=== PATIENT | female | born 1960 | race Caucasian/White ===

== ENCOUNTER 2022-05-08 07:30 | Inpatient (IN) | payer OTHER ==
[~2022-05-08] VITALS: Ht 175.3 cm; Wt 79.4 kg
[2022-05-08 07:36] VITALS: BP 85/52
[2022-05-08] MEDS ORDERED: IBUPROFEN 600 MG TAB PO ONE (08:00)
[2022-05-08] MEDS ORDERED: NACL 0.9% 2,000 ML IV ONE (08:00)
[2022-05-08 10:00] LABS: ALBUMIN 1.7 g/dL (3.4-5.0); ANION GAP 11.4 (8-16); CARBON DIOXIDE 28.2 mmol/L (21-32); CREATININE 0.9 mg/dL (0.6-1.3); POTASSIUM 3.6 mmol/L (3.5-5.1); TOTAL BILIRUBIN 0.5 mg/dL (0.0-1.0)
[2022-05-08] MEDS ORDERED: LEVOFLOXACIN 750 MG/D5W PREMIX 150 ML IV ONE (10:15)
[2022-05-08] MEDS ORDERED: NACL 0.9% 1,000 ML IV ONE (10:20)
[2022-05-08 10:31] LABS: HEMATOCRIT 35.4 % (36-48); HEMOGLOBIN 11.9 g/dL (12.0-16.0); MEAN CORPUSCULAR VOLUME 92.1 fL (80-94); RED BLOOD CELL COUNT(AUTO) 3.85 MIL/uL (4.20-5.40); WHITE BLOOD COUNT (AUTO) 8.5 K/uL (4.8-10.8)
[2022-05-08 10:32] LABS: MEAN CORPUSCULAR HEMOGLOBIN 31 pg (27-31); MEAN CORPUSCULAR HGB CONC 34 g/dL (33-37); RED CELL DISTRIBUTION WIDTH 12.2 % (11.6-13.7)
[2022-05-08 10:33] LABS: NEUTROPHILS % (AUTO) 82.8 % (42.2-75.2); PLATELET COUNT (AUTO) 190 K/uL (140-450)
[2022-05-08 10:34] LABS: BASOPHILS % (AUTO) 0.3 % (0.0-2.0); LYMPHOCYTES % (AUTO) 8.3 % (20.5-51.1); MONOCYTES % (AUTO) 8.6 % (1.7-9.3)
[2022-05-08 10:42] LABS: PROTHROMBIN TIME 10.6 secs (10.8-13.4)
[2022-05-08] MEDS ORDERED: ATOR40TA PO (10:53)
[2022-05-08] MEDS ORDERED: GABA300C PO (10:53)
[2022-05-08] MEDS ORDERED: ASPI-1822 PO (10:53)
[2022-05-08] MEDS ORDERED: BACL10TA4 PO (10:53)
[2022-05-08] MEDS ORDERED: DULO20EC PO (10:53)
[2022-05-08] MEDS ORDERED: ACET-10509 PO (10:53)
[2022-05-08] MEDS ORDERED: MIRT-91 PO (10:55)
[2022-05-08] MEDS ORDERED: ALPR0.252 PO (10:55)
[2022-05-08] MEDS ORDERED: MELA1TAB32 PO (10:55)
[2022-05-08] MEDS ORDERED: MIRA25TE PO (10:55)
[2022-05-08 12:15] VITALS: BP 91/58
[2022-05-08] MEDS: NACL 0.9% 1,000 ML IV SCH (14:05)
[2022-05-08] MEDS ORDERED: ONDANSETRON 4 MG/2 ML VIAL IVP PRN (14:05)
[2022-05-08] MEDS ORDERED: LORazepam 2 MG/ML VIAL IVP PRN (14:05)
[2022-05-08] MEDS: MORPHINE SULFATE 2 MG/ML SYR IVP PRN (15:11)
[2022-05-08] MEDS: PIPERACILLIN/TAZOBACTAM 3.375 GM in DEXTROSE 5% 50 ML IV SCH ×2 (15:11→21:29)
[2022-05-08 16:00] VITALS: BP 102/42
[2022-05-08 20:00] VITALS: BP 107/57
[2022-05-09] VITALS: BP 100/54
[2022-05-09] MEDS: NACL 0.9% 1,000 ML IV SCH ×2 (03:25→16:50)
[2022-05-09 04:00] VITALS: BP 108/53
[2022-05-09] MEDS: PIPERACILLIN/TAZOBACTAM 3.375 GM in DEXTROSE 5% 50 ML IV SCH ×3 (05:46→21:02)
[2022-05-09 08:00] VITALS: BP 93/48
[2022-05-09 10:56] LABS: ALBUMIN 1.9 g/dL (3.4-5.0); ANION GAP 11.1 (8-16); CARBON DIOXIDE 26.8 mmol/L (21-32); CREATININE 0.6 mg/dL (0.6-1.3); MAGNESIUM 1.8 mg/dL (1.8-2.4); PHOSPHORUS 3.1 mg/dL (2.5-4.9); TOTAL BILIRUBIN 0.5 mg/dL (0.0-1.0)
[2022-05-09 11:04] LABS: BASOPHILS % (AUTO) 0.3 % (0.0-2.0); EOSINOPHILS % (AUTO) 0.5 % (0.0-4.0); HEMATOCRIT 33.6 % (36-48); HEMOGLOBIN 11.3 g/dL (12.0-16.0); LYMPHOCYTES # (AUTO) 0.7 K/uL (2.5-16.5); LYMPHOCYTES % (AUTO) 9.2 % (20.5-51.1); MEAN CORPUSCULAR HEMOGLOBIN 31 pg (27-31); MEAN CORPUSCULAR HGB CONC 34 g/dL (33-37); MEAN CORPUSCULAR VOLUME 92.3 fL (80-94); MONOCYTES # (AUTO) 0.7 K/uL (0.8-1.0); MONOCYTES % (AUTO) 8.8 % (1.7-9.3); NEUTROPHILS # (AUTO) 6.4 K/uL (1.8-7.7); NEUTROPHILS % (AUTO) 81.2 % (42.2-75.2); PLATELET COUNT (AUTO) 216 K/uL (140-450); RED BLOOD CELL COUNT(AUTO) 3.64 MIL/uL (4.20-5.40); RED CELL DISTRIBUTION WIDTH 12.7 % (11.6-13.7); WHITE BLOOD COUNT (AUTO) 7.8 K/uL (4.8-10.8)
[2022-05-09 11:26] LABS: POTASSIUM 2.9 mmol/L (3.5-5.1)
[2022-05-09 12:00] VITALS: BP 92/54
[2022-05-09] MEDS ORDERED: POTASSIUM CHLORIDE 40 MEQ, LIDOCAINE MPF 1% 25 MG in NACL 0.9% 250 ML IV SCH (12:30)
[2022-05-09 16:00] VITALS: BP 106/54
[2022-05-09] MEDS: MORPHINE SULFATE 2 MG/ML SYR IVP PRN (17:23)
[2022-05-09 20:00] VITALS: BP 90/50
[2022-05-10] VITALS: BP 91/49
[2022-05-10] MEDS: ACETAMINOPHEN 325 MG TAB PO PRN ×2 (02:22→15:30)
[2022-05-10 04:00] VITALS: BP 90/51
[2022-05-10] MEDS: PIPERACILLIN/TAZOBACTAM 3.375 GM in DEXTROSE 5% 50 ML IV SCH ×2 (04:23→12:03)
[2022-05-10] MEDS: NACL 0.9% 1,000 ML IV SCH (06:05)
[2022-05-10] MEDS: BACLOFEN 10 MG TAB PO SCH ×3 (08:32→16:51)
[2022-05-10] MEDS ORDERED: GABAPENTIN 300 MG CAP PO SCH (09:00)
[2022-05-10] MEDS ORDERED: ASPIRIN 81 MG TAB.CHEW PO SCH (09:00)
[2022-05-10] MEDS ORDERED: DULOXETINE HCL PO SCH (09:00)
[2022-05-10] MEDS ORDERED: NON-FORMULARY ITEM (Mirabegron (Myrbetriq) 1 TAB) PO SCH (09:00)
[2022-05-10 15:01] LABS: ANION GAP 7.6 (8-16); CARBON DIOXIDE 28.2 mmol/L (21-32); CREATININE 0.7 mg/dL (0.6-1.3)
[2022-05-10 15:03] LABS: POTASSIUM 2.8 mmol/L (3.5-5.1)
[2022-05-10] MEDS ORDERED: AMOX-999 PO (15:25)
[2022-05-10] MEDS ORDERED: KCL 20 MEQ/WATER INJ PREMIX 200 ML IV SCH (16:00)
[2022-05-10 16:30] VITALS: BP 100/54
[2022-05-10] MEDS ORDERED: ATORVASTATIN 20 MG TAB PO SCH (21:00)
[2022-05-10] MEDS ORDERED: MIRTAZAPINE 15 MG TAB PO SCH (21:00)
== END 2022-05-10 18:45 | DRG 720 ==
LOC: MED 07:30 → MTU 11:06
PROVIDERS: ADMIT Hospitalist; ATTEND Hospitalist
DX: A41.9 Sepsis, unspecified organism (principal); R53.2 Functional quadriplegia; E44.0 Moderate protein-calorie malnutrition; J18.9 Pneumonia, unspecified organism; Z20.822 Contact with and (suspected) exposure to COVID-19; T14.8XXA Other injury of unspecified body region, initial encounter; X58.XXXA Exposure to other specified factors, initial encounter; Z79.82 Long term (current) use of aspirin; Z79.899 Other long term (current) drug therapy; Z79.1 Long term (current) use of non-steroidal anti-inflammatories (NSAID); Y93.89 Activity, other specified; Y92.89 Other specified places as the place of occurrence of the external cause; Y99.8 Other external cause status; Z68.25 Body mass index [BMI] 25.0-25.9, adult
CPT/HCPCS: 36415; 71045; 80048; 80053; 82150; 83605; 83690; 83735; 84100; 85025; 85610; 85730; 87040; 92610; 96361; 96365; 99291; 99292; J1956; J2001; J2060; J2270; J2543; J3480; J7030; J7060

== ENCOUNTER 2022-08-01 16:03 | Inpatient (IN) | payer OTHER ==
[~2022-08-01] VITALS: Ht 175.3 cm; Wt 66.7 kg
[~2022-08-01 16:03] MED LIST: ACET-10509 PO; ALPR0.252 PO; AMOX-999 PO; ASPI-1822 PO; ATOR40TA PO; BACL10TA4 PO; DULO20EC PO; GABA300C PO; MELA1TAB32 PO; MIRA25TE PO; MIRT-91 PO
[2022-08-01 16:11] VITALS: BP 129/67
--- NOTE | 2022-08-01 16:11 | NUR ---
BIBA to bed 12; placed onto quality assurance monitor.
--- NOTE | 2022-08-01 16:15 | NUR ---
62/F BIBA FROM [facility] C/O GEN WEAK ACCOMPANIED BY NAUSEA AND VOMITING. EMS REPORTS 5 EPISODES OF EMESIS TODAY. PT REPORTS TAKING BIVALENT COVID BOOSTER YESTERDAY. AAO4, NONAMBULATORY, VITALS STABLE, TACHY ON MONITOR, IV ESTABLISHED TO RIGHT HAND WITH 20G. NKA PMH: CVA (QUADRIPLEGIA), HTN, HDL, ANXIETY, DEPRESSION
--- NOTE | 2022-08-01 16:30 | NUR ---
COVID AND FLU SWAB COLLECTED AND SENT TO LAB
[2022-08-01] MEDS ORDERED: cefTRIAXone 1,000 MG in DEXT 5% MINI-BAG PLUS 50 ML IV ONE (16:40)
[2022-08-01] MEDS ORDERED: NACL 0.9% 2,000 ML IV SCH (16:40)
[2022-08-01] MEDS ORDERED: cefTRIAXone 1,000 MG VIAL ONE (16:54)
--- NOTE | 2022-08-01 16:55 | NUR ---
XR AT BEDSIDE
[2022-08-01 16:59] LABS: BASOPHILS % (AUTO) 0.4 % (0.0-2.0); EOSINOPHILS % (AUTO) 0.2 % (0.0-4.0); HEMATOCRIT 44.3 % (36-48); HEMOGLOBIN 14.8 g/dL (12.0-16.0); LYMPHOCYTES # (AUTO) 0.4 K/uL (2.5-16.5); MEAN CORPUSCULAR HEMOGLOBIN 31 pg (27-31); MEAN CORPUSCULAR HGB CONC 33 g/dL (33-37); MEAN CORPUSCULAR VOLUME 92.4 fL (80-94); MONOCYTES # (AUTO) 0.3 K/uL (0.8-1.0); MONOCYTES % (AUTO) 2.9 % (1.7-9.3); NEUTROPHILS # (AUTO) 7.8 K/uL (1.8-7.7); NEUTROPHILS % (AUTO) 91.5 % (42.2-75.2); PLATELET COUNT (AUTO) 218 K/uL (140-450); WHITE BLOOD COUNT (AUTO) 8.5 K/uL (4.8-10.8)
[2022-08-01] MEDS ORDERED: MORPHINE SULFATE 4 MG/ML SYR IVP ONE (17:00)
[2022-08-01] MEDS ORDERED: ONDANSETRON 4 MG/2 ML VIAL IVP ONE (17:00)
[2022-08-01 17:14] LABS: ALBUMIN 3.2 g/dL (3.4-5.0); ANION GAP 13.1 (8-16); CARBON DIOXIDE 28.6 mmol/L (21-32); CREATININE 0.6 mg/dL (0.6-1.3); POTASSIUM 3.7 mmol/L (3.5-5.1); TOTAL BILIRUBIN 0.8 mg/dL (0.0-1.0)
--- NOTE | 2022-08-01 18:00 | NUR ---
STRAIGHT CATH ATTEMPTED BUT NO URINE COLLECTED. ERMD MADE AWARE.
[2022-08-01] MEDS ORDERED: SODIUM PHOSPHATE 118 ML ENEM RC ONE (18:15)
[2022-08-01] MEDS ORDERED: ONDANSETRON 4 MG/2 ML VIAL IVP PRN (18:30)
[2022-08-01] MEDS ORDERED: ACETAMINOPHEN 325 MG TAB PO PRN (18:35)
--- NOTE | 2022-08-01 18:52 | NUR ---
AMEZCUA INSERTED PER ERMD VERBAL ORDER. NO OUTPUT NOTED. BLADDER SCAN PERFORMED AND 400CC URINE WAS NOTED. AMEZCUA CONTINUED TO BE PLACED IN PATIENT. ERMD NOTIFIED.
[2022-08-01] MEDS: NACL 0.9% 1,000 ML IV SCH (19:32)
--- NOTE | 2022-08-01 20:54 | NUR ---
Patient reported, had back back , 04/24
--- NOTE | 2022-08-01 21:02 | NUR ---
Called Dr. Angel for prn pain medication.
[2022-08-01] MEDS ORDERED: KETOROLAC 30 MG/ML VIAL ONE (21:09)
--- NOTE | 2022-08-01 21:16 | NUR ---
Toradol 30 mg IV given for pain.
[2022-08-01] MEDS: MIRTAZAPINE 15 MG TAB PO SCH (21:20)
[2022-08-01] MEDS: ATORVASTATIN 20 MG TAB PO SCH (21:21)
--- NOTE | 2022-08-01 22:22 | NUR ---
Re-position patient.
[2022-08-01] MEDS: KETOROLAC 30 MG/ML VIAL IVP PRN (22:56)
--- NOTE | 2022-08-01 23:03 | NUR ---
Patient reported, had tailbone pain, 7/10.
--- NOTE | 2022-08-01 23:36 | NUR ---
Given tramadol 50 mg PO as request for pain.
[2022-08-01] MEDS: traMADol 50 MG TAB PO PRN (23:39)
--- NOTE | 2022-08-02 00:09 | NUR ---
Patient is sleeping/
--- NOTE | 2022-08-02 00:53 | NUR ---
Change diaper, bed sheet, Patient able to urinate and small bowel movement. Removed Marin's cath/
--- NOTE | 2022-08-02 01:02 | NUR ---
Re-position to left side.
--- NOTE | 2022-08-02 02:18 | NUR ---
Patient appears to be resting comfortably in bed. Vital Signs within normal limits. Respirations even and unlabored.
--- NOTE | 2022-08-02 04:08 | NUR ---
Patient reported- pain , lower back pain, pain rate 9/10.
[2022-08-02] MEDS: KETOROLAC 30 MG/ML VIAL IVP PRN (04:17)
--- NOTE | 2022-08-02 04:52 | NUR ---
Patient urinated and had one small bowel movement, change diaper and clean and re-position patient.
--- NOTE | 2022-08-02 04:58 | NUR ---
Provided water as request.
--- NOTE | 2022-08-02 05:28 | NUR ---
Provided blanket as request.
[2022-08-02 06:39] LABS: BASOPHILS # (AUTO) 0.1 K/uL (0.00-0.22); BASOPHILS % (AUTO) 0.7 % (0.0-2.0); EOSINOPHILS # (AUTO) 0.1 K/uL (0-0.4); EOSINOPHILS % (AUTO) 1.3 % (0.0-4.0); HEMATOCRIT 37.2 % (36-48); HEMOGLOBIN 12.5 g/dL (12.0-16.0); LYMPHOCYTES # (AUTO) 1.4 K/uL (2.5-16.5); LYMPHOCYTES % (AUTO) 15.1 % (20.5-51.1); MEAN CORPUSCULAR HEMOGLOBIN 31 pg (27-31); MEAN CORPUSCULAR HGB CONC 34 g/dL (33-37); MEAN CORPUSCULAR VOLUME 91.4 fL (80-94); MONOCYTES # (AUTO) 0.9 K/uL (0.8-1.0); MONOCYTES % (AUTO) 10.2 % (1.7-9.3); NEUTROPHILS # (AUTO) 6.6 K/uL (1.8-7.7); NEUTROPHILS % (AUTO) 72.7 % (42.2-75.2); PLATELET COUNT (AUTO) 191 K/uL (140-450); RED BLOOD CELL COUNT(AUTO) 4.07 MIL/uL (4.20-5.40); RED CELL DISTRIBUTION WIDTH 14.5 % (11.6-13.7)
[2022-08-02 06:56] LABS: ALBUMIN 2.4 g/dL (3.4-5.0); ANION GAP 9.8 (8-16); CARBON DIOXIDE 29.1 mmol/L (21-32); CREATININE 0.6 mg/dL (0.6-1.3); MAGNESIUM 1.6 mg/dL (1.8-2.4); POTASSIUM 3.9 mmol/L (3.5-5.1); TOTAL BILIRUBIN 0.6 mg/dL (0.0-1.0)
[2022-08-02] MEDS: NACL 0.9% 1,000 ML IV SCH ×2 (07:00→19:30)
--- NOTE | 2022-08-02 07:35 | NUR ---
Patient will be admitted to care of Stanley BEARD. Admitted to [facility]. Will go to room 123B. Belongings list completed. Report to Giacomo QUINTANA.
[2022-08-02 08:00] VITALS: BP 120/58
[2022-08-02] MEDS ORDERED: DULOXETINE HCL PO SCH (09:00)
[2022-08-02] MEDS ORDERED: NON-FORMULARY ITEM (Mirabegron (Myrbetriq) 1 TAB) PO SCH (09:00)
[2022-08-02] MEDS: GABAPENTIN 300 MG CAP PO SCH ×3 (09:00→17:00)
[2022-08-02] MEDS: ASPIRIN 81 MG TAB.CHEW PO SCH (09:00)
[2022-08-02] MEDS: ENOXAPARIN 40 MG/0.4 ML SYR SUBQ SCH (09:00)
[2022-08-02] MEDS: ALPRAZolam 0.25 MG TAB PO SCH ×3 (09:00→17:00)
--- NOTE | 2022-08-02 10:28 | NUR ---
PATIENT HAS BEEN SCREENED AND CATEGORIZED MODERATE NUTRITION RISK. PATIENT WILL BE SEEN WITHIN 3-5 DAYS OF ADMISSION. 08/01/22-08/06/[address] REVIEWED BY [address]IL HOROWITZ RD
[2022-08-02 12:00] VITALS: BP 120/58
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
[2022-08-02 16:06] VITALS: BP 120/60
[2022-08-02] MEDS: BACLOFEN 10 MG TAB PO SCH (17:00)
[2022-08-02] MEDS ORDERED: NON-FORMULARY ITEM (Melatonin/Pyridoxine HCl (B6) (Melatonin 3 mg Tablet) 1 TAB) PO SCH (17:00)
--- NOTE | 2022-08-02 19:50 | NUR ---
RECEIVED REPORT FROM DAY SHIFT NURSE. PATIENT AWAKE ALERT WELL RESTED ON ROOM AIR, CONTRACTED. NO S/S OF RESPIRATORY DISTRESS. RESPIRATION REGULAR NON LABORED. ABLE TO COMMUNICATE WITH HER NEEDS. NO COMPLAINTS OF PAIN AT THIS TIME. IVF NS INFUSING 80 MLS/HR. ALL SAFETY PRECAUTIONS ARE IN PLACE. CALL LIGHT WITHIN REACH.
[2022-08-02] MEDS: ATORVASTATIN 20 MG TAB PO SCH (20:57)
--- NOTE | 2022-08-02 20:57 | NUR ---
ALL SCHEDULED MEDICATIONS GIVEN ORDERED.
[2022-08-02] MEDS: MELATONIN 3 MG TAB PO SCH (21:00)
[2022-08-02] MEDS: MIRTAZAPINE 15 MG TAB PO SCH (21:00)
[2022-08-02] MEDS: traMADol 50 MG TAB PO PRN (21:04)
[2022-08-02] MEDS ORDERED: bisacodyL 10 MG SUPP RC ONE ×2 (22:20→23:29)
--- NOTE | 2022-08-02 23:15 | NUR ---
ASSISTED BESSEMER CONVERTER OPERATOR IN CLEANING AND REPOSITIONING THE PATIENT.
[2022-08-03] VITALS: BP 105/66
[2022-08-03] MEDS: NACL 0.9% 1,000 ML IV SCH ×3 (00:04→20:30)
--- NOTE | 2022-08-03 02:20 | NUR ---
PATIENT SLEEPING, BREATHING NORMAL WITH SYMMETRICAL RISE AND FALL OF THE CHEST. CALL LIGHT WITHIN REACH.
[2022-08-03] MEDS: KETOROLAC 30 MG/ML VIAL IVP PRN (04:09)
--- NOTE | 2022-08-03 04:09 | NUR ---
PATIENT IV LINE INFILTRATED. TRIED TO START A NEW LINE PATIENT IS HARDSTICK. DR. LEVI MADE AWARE.
[2022-08-03] MEDS: traMADol 50 MG TAB PO PRN (06:58)
--- NOTE | 2022-08-03 07:24 | NUR ---
ENDORSED PATIENT TO MORNING SHIFT NURSE FOR CONTINUITY OF CARE.
[2022-08-03 08:00] VITALS: BP 115/70
[2022-08-03] MEDS: ENOXAPARIN 40 MG/0.4 ML SYR SUBQ SCH (09:51)
[2022-08-03] MEDS: ASPIRIN 81 MG TAB.CHEW PO SCH (09:51)
[2022-08-03] MEDS: ALPRAZolam 0.25 MG TAB PO SCH ×3 (09:51→16:53)
[2022-08-03] MEDS: GABAPENTIN 300 MG CAP PO SCH ×3 (09:51→16:53)
[2022-08-03] MEDS: KETOROLAC 30 MG/ML VIAL IM PRN ×2 (10:03→16:52)
[2022-08-03 16:00] VITALS: BP 103/66
[2022-08-03] MEDS: BACLOFEN 10 MG TAB PO SCH (16:53)
--- NOTE | 2022-08-03 19:10 | NUR ---
RECEIVED PT FROM MORNING SHIFT NURSE. PT IS LYING ON THE BED, BEDBOUND. PT IS AOX3, ABLE TO VERBALIZE NEEDS AND ABLE TO FOLLOW COMMANDS. PT IS ON ROOM AIR AND ON REGULAR DIET. PT HAS NO IV BECAUSE ACCORDING TO MARIANO NAYLOR MORNING SHIFT NURSE, DR. LEVI, APPROVED NOT TO INSERTED NEW IV TO PT BECAUSE PT WILL BE DISCHARGE. PT DENIES PAIN AT THIS TIME. NO S/S OF RESPIRATORY DISTRESS NOTED. PT SKIN IS INTACT. ALL SAFETY MEASURES IMPLEMENTED. BED WHEELS ON LOCKED, BED IN LOW POSITION AND CALL LIGHT WITHIN REACH,
[2022-08-03] MEDS: MELATONIN 3 MG TAB PO SCH (20:13)
[2022-08-03] MEDS: ATORVASTATIN 20 MG TAB PO SCH (20:13)
[2022-08-03] MEDS: MIRTAZAPINE 15 MG TAB PO SCH (20:13)
--- NOTE | 2022-08-03 20:13 | NUR ---
ALL SCHEDULED AND PRESCRIBED MEDICATION WAS GIVEN TO PT PER MD ORDER. ALL SAFETY MEASURES IMPLEMENTED. BED WHEELS ON LOCKED, BED IN LOW POSITION AND CALL LIGHT WITHIN REACH,
--- NOTE | 2022-08-03 22:00 | NUR ---
CLEANED AND CHANGED THE PT'S LINENS. PT DENIES PAIN AT THIS TIME. NO S/S OF RESPIRATORY DISTRESS NOTED. ALL SAFETY MEASURES IMPLEMENTED. BED WHEELS ON LOCKED, BED IN LOW POSITION AND CALL LIGHT WITHIN REACH.
[2022-08-04] VITALS: BP 111/50
--- NOTE | 2022-08-04 00:47 | NUR ---
PRN PAIN MEDICATION WAS GIVEN TO PT DUE TO GENERALIZED PAIN WITH THE PAIN SCALE OF 3/10. ALL SAFETY MEASURES IMPLEMENTED. BED WHEELS ON LOCKED, BED IN LOW POSITION AND CALL LIGHT WITHIN REACH.
--- NOTE | 2022-08-04 02:00 | NUR ---
PT IS SLEEPING. CHEST RISE AND FALL SYMMETRICALLY NOTED. RESPIRATION IS EVEN AND UNLABORED. ALL SAFETY MEASURES IMPLEMENTED. BED IN LOW POSITION, BED WHEELS ON LOCKED AND CALL LIGHT WITHIN REACH.
--- NOTE | 2022-08-04 04:00 | NUR ---
PT WAS TRANSFERRED ROOM FROM [facility]. ALL PT'S BELONGINGS WAS WITH HER. ALL SAFETY MEASURES IMPLEMENTED. BED IN LOW POSITION, BED WHEELS ON LOCKED AND CALL LIGHT WITHIN REACH.
--- NOTE | 2022-08-04 07:17 | NUR ---
PT IS STABLE. ENDORSED PT TO MORNING SHIFT NURSE FOR CONTINUITY OF CARE.
[2022-08-04 08:00] VITALS: BP 123/78
[2022-08-04] MEDS: NACL 0.9% 1,000 ML IV SCH (08:04)
[2022-08-04] MEDS: ALPRAZolam 0.25 MG TAB PO SCH ×2 (08:05→13:02)
[2022-08-04] MEDS: ASPIRIN 81 MG TAB.CHEW PO SCH (08:05)
[2022-08-04] MEDS: GABAPENTIN 300 MG CAP PO SCH ×2 (08:05→13:02)
--- NOTE | 2022-08-04 08:05 | NUR ---
RECEIVED PATIENT FROM DAY RN, PATIENT IS AOX3, RESPIRATIONS EVEN AND UNLABORED ON ROOM AIR, ABLE TO MAKE NEEDS KNOWN. PATIENT REPORTS GENERALIZED PAIN REQUESTING PAIN MEDICATION WELL SOMETHING FOR ANXIETY. SCHEDULED AND PRN MEDICATIONS GIVEN. PATIENT IS QUADRIPLEGIC, CONTRACTED IN ALL EXTREMITIES. PATIENT WAS FED BREAKFAST, TOLERATED WELL. LAST BM 08/04. SKIN INTACT. UPDATED PT ON PLAN OF CARE. WILL CONTINUE TO MONITOR.
[2022-08-04] MEDS: ENOXAPARIN 40 MG/0.4 ML SYR SUBQ SCH (08:06)
[2022-08-04] MEDS: traMADol 50 MG TAB PO PRN ×2 (08:14→13:01)
[2022-08-04 12:00] VITALS: BP 106/69
--- NOTE | 2022-08-04 13:33 | NUR ---
NOTIFIED BY MANAGER [employer] THAT PICKUP TIME IS 2:00 PM TO TRANSFER BACK TO [facility]. PATIENT MADE AWARE. PATIENT REPORTS PAIN IN RIGHT EAR, PRESSURE, AND DIFFICULTY HEARING. NOTIFIED DR. LEVI AT BEDSIDE WHO EXAMINED PATIENT AND FLUSHED THE EAR WITH SOME CERUMEN NOTED PATIENT STILL REPORTS PAIN, ORDERS RECEIVED TO CONTINUE FLUSHING AT [facility]. PRN PAIN MEDICATIONS GIVEN. WILL CONTINUE TO MONITOR.
--- NOTE | 2022-08-04 14:13 | NUR ---
DISCHARGE PROCESSED, BED BATH GIVEN TO PATIENT, PT TOLERATED WELL, REPORTS RELIEF FROM PAIN. NO IV TO REMOVE. SKIN INTACT AT THIS TIME. ALL BELONGINGS SENT WITH PATIENT. WILL CONTINUE TO MONITOR.
--- NOTE | 2022-08-04 14:14 | NUR ---
PICKED UP BY AMBULANCE TO RETURN TO [facility]
--- NOTE | 2022-08-04 14:19 | NUR ---
PATIENT WITH DC ORDER, RN ATTEMPTED TO ARRANGE TRANSPORT THROUGH [facility], TRANSPORT SHEET FAXED TO THEM WITHOUT RESPONSE. ATTEMPTED TO SPEAK WITH NIB INSPECTOR CM FOR [facility] FOR AUTHORIZATION FOR GO GO TRANSPORT, NO CALL BACK. RN THEN ARRANGED TRANSPORT WITH [facility] FOR [facility], ARRANGED FOR 1400 TO RETURN TO [facility]. PATIENT ASSIGNED ROOM 9C PER NOVA AT THE SNF, DR JARA TO FOLLOW. PATIENTS RN AWARE OF ABOVE.
== END 2022-08-04 14:15 | DRG 254 ==
LOC: MED 16:03 → OBSVTOIN 18:31 → MTU 18:31
PROVIDERS: ADMIT Hospitalist; ATTEND Student in an Organized Health Care Education/Training Program
DX: K59.00 Constipation, unspecified (principal); R53.2 Functional quadriplegia; E44.0 Moderate protein-calorie malnutrition; R65.10 Systemic inflammatory response syndrome (SIRS) of non-infectious origin without acute organ dysfunction; E78.5 Hyperlipidemia, unspecified; Z20.822 Contact with and (suspected) exposure to COVID-19; F32.A Depression, unspecified; F41.9 Anxiety disorder, unspecified; N32.89 Other specified disorders of bladder; H61.21 Impacted cerumen, right ear; Z86.73 Personal history of transient ischemic attack (TIA), and cerebral infarction without residual deficits; Z68.21 Body mass index [BMI] 21.0-21.9, adult
CPT/HCPCS: 36415; 71045; 80053; 82550; 82948; 83605; 83735; 83880; 84484; 85025; 87040; 87081; 93005; J0696; J1650; J1885; J2270; J2405